=== PATIENT | female | born 1950 | race Caucasian/White ===

== ENCOUNTER 2019-09-09 20:09 | Inpatient (IN) | payer BC, MEDICARE ==
[~2019-09-09] VITALS: Ht 167.6 cm; Wt 76.2 kg
[~2019-09-09 20:09] MED LIST: LOSA25TA27 PO; SIMV20TA2 PO; VERA240C2 PO
--- NOTE | 2019-09-09 20:38 | NUR ---
PATIENT CAME TO ER BED 2 C/O RIGHT HIP PAIN SINCE EARLIER TODAY. PATIENT STATES THAT SHE WAS WALKING WITH HER DAUGHTER WHEN SHE HAD LOST BALANCED AND "SPRAINED HER ANKLE". HX OF RIGHT SIDE MASTECTOMY. RIGHT HIP PAIN, PEDAL PULSE STRONG AND EQUAL BILATERALLY. RIGHT LEG EXTERNAL ROTATION. AAOX4. NO SOB. BREATHING EVENLY AND UNLABORED ON ROOM AIR. CONNECTED TO MONITOR.
--- NOTE | 2019-09-09 20:43 | NUR ---
XRAY AT BEDSIDE.
--- NOTE | 2019-09-09 21:02 | NUR ---
ER SPOKE TO DR. PICKARD REGARDING PT ADMISSION.
[2019-09-09 21:15] LABS: BASOPHILS % (AUTO) 0.5 % (0.0-2.0); EOSINOPHILS % (AUTO) 0.5 % (0.0-6.0); HEMATOCRIT 40 % (33-45); HEMOGLOBIN 13.2 g/dL (11.5-14.8); LYMPHOCYTES # (AUTO) 0.6 /CMM (0.8-4.8); LYMPHOCYTES % (AUTO) 7.6 % (20.0-44.0); MEAN CORPUSCULAR HGB CONC 33 g/dl (31.0-36.0); MEAN CORPUSCULAR VOLUME 91 fL (82-100); MONOCYTES # (AUTO) 0.4 /CMM (0.1-1.30); MONOCYTES % (AUTO) 4.3 % (2.0-12.0); NEUTROPHILS # (AUTO) 7.4 /CMM (1.8-8.9); NEUTROPHILS % (AUTO) 87.1 % (43.0-81.0); PLATELET COUNT (AUTO) 194 /CMM (150-450); WHITE BLOOD COUNT (AUTO) 8.5 K/uL (4.3-11.0)
[2019-09-09 21:24] LABS: CALCIUM, SERUM 8.6 mg/dL (8.5-10.1); CREATININE 0.9 mg/dL (0.6-1.3)
[2019-09-09 21:35] LABS: ALBUMIN 3.5 g/dL (3.4-5.0); BILIRUBIN,TOTAL 0.2 mg/dL (0.2-1.0)
--- NOTE | 2019-09-09 21:35 | NUR ---
URINE COLLECTED AND SENT TO LAB.
--- NOTE | 2019-09-09 21:37 | NUR ---
REPORT CALLED TO M/S NISHI COSBY. PENDING HOSPITAL ADMISSION.
[2019-09-09 21:40] LABS: APPEARANCE,URINE Clear (CLEAR); BILIRUBIN,URINE Negative (NEGATIVE); BLOOD, URINE Negative Ery/uL (NEGATIVE); COLOR,URINE Yellow (YELLOW); KETONES,URINE Negative (NEGATIVE); LEUKOCYTE ESTERASE ,URINE Negative (NEGATIVE); NITRITE, URINE Negative (NEGATIVE); PH,URINE 7.5 (5.0-8.0); PROTEIN,URINE Negative (NEGATIVE); UGLUCOSE Negative (NEGATIVE); UROBILINOGEN,URINE 0.2 EU/dL (0.2)
--- NOTE | 2019-09-09 21:42 | NUR ---
ER MD SPOKE TO PIPE CHAPMAN REGARDING PT ADMISSION.
[2019-09-09] MEDS ORDERED: IV D5/0.45 NACL 1,000 ML IV PRN (21:57)
[2019-09-09] MEDS ORDERED: ONDANSETRON HCL/PF 4 MG/2 ML VIAL IV PRN (22:00)
[2019-09-09] MEDS ORDERED: LORAZEPAM INJ 2 MG/ML VIAL IV PRN (22:00)
[2019-09-09] MEDS ORDERED: Z GUARD REMEDY 2 OZ OINT TP PRN (22:00)
[2019-09-09] MEDS ORDERED: MORPHINE SULFATE INJ 4 MG/ML DISP.SYRIN IV PRN (22:00)
[2019-09-09] MEDS ORDERED: hydrALAZINE HCL IV 20 MG VIAL IV PRN (22:00)
[2019-09-09] MEDS ORDERED: ONDANSETRON HCL/PF 4 MG/2 ML VIAL IVP PRN (22:00)
--- NOTE | 2019-09-09 22:55 | NUR ---
MS RN ADMITTING NOTES RECEIVED PT FROM ER VIA CECIL IN STABLE CONDITION. PT A/O X3 AND ABLE TO MAKE NEEDS KNOWN. RESPIRATIONS EVEN AND UNLABORED WITH NO S/S OF ACUTE DISTRESS OR SOB NOTED. PT NOTED WITH ISELAAND #20G PATENT AND INTACT AND SL. SAFETY MEASURES IN PLACE WITH BED IN LOWEST LOCKED POSITION WITH SIDE RAILS UP X2. ORIENTED PT TO STAFF AND ROOM. CALL LIGHT WITHIN REACH. WILL CONTINUE TO MONITOR.
[2019-09-09 23:00] VITALS: BP 160/90
[2019-09-09] MEDS: MORPHINE SULFATE INJ 2 MG/ML DISP.SYRIN IV PRN (23:58)
[2019-09-10 06:30] LABS: BASOPHILS % (AUTO) 0.5 % (0.0-2.0); EOSINOPHILS % (AUTO) 0.9 % (0.0-6.0); HEMATOCRIT 41 % (33-45); HEMOGLOBIN 13.2 g/dL (11.5-14.8); LYMPHOCYTES # (AUTO) 0.7 /CMM (0.8-4.8); LYMPHOCYTES % (AUTO) 9.6 % (20.0-44.0); MEAN CORPUSCULAR HGB CONC 33 g/dl (31.0-36.0); MEAN CORPUSCULAR VOLUME 92 fL (82-100); MONOCYTES # (AUTO) 0.3 /CMM (0.1-1.30); MONOCYTES % (AUTO) 4.9 % (2.0-12.0); NEUTROPHILS # (AUTO) 5.9 /CMM (1.8-8.9); NEUTROPHILS % (AUTO) 84.1 % (43.0-81.0); PLATELET COUNT (AUTO) 183 /CMM (150-450); RED BLOOD CELL COUNT(AUTO) 4.42 MIL/uL (4.0-5.2); WHITE BLOOD COUNT (AUTO) 7.1 K/uL (4.3-11.0)
[2019-09-10 06:51] LABS: ALBUMIN 3.2 g/dL (3.4-5.0); BILIRUBIN,TOTAL 0.4 mg/dL (0.2-1.0); CALCIUM, SERUM 8.7 mg/dL (8.5-10.1); CREATININE 0.7 mg/dL (0.6-1.3); PHOSPHORUS 3.6 mg/dL (2.5-4.9); POTASSIUM 4.1 mmol/L (3.5-5.1); THYROID STIMULATING HORMONE 2.705 uIU/mL (0.358-3.74); TOTAL PROTEIN, SERUM 6.6 g/dL (6.4-8.2)
--- NOTE | 2019-09-10 07:24 | NUR ---
MS RN ADMITTING NOTES PT IN BED AWAKE AND ABLE TO MAKE NEEDS KNOWN. PT A/O X3. RESPIRATIONS EVEN AND UNLABORED WITH NO S/S OF ACUTE DISTRESS OR SOB NOTED THROUGHOUT SHIFT. PT NOTED WITH BRANDEE #20G PATENT AND INTACT INFUSING D5 1/2 NS @75CC/HR. SAFETY MEASURES IN PLACE WITH BED IN LOWEST LOCKED POSITION WITH SIDE RAILS UP X2. CALL LIGHT WITHIN REACH. WILL ENDORSE TO ONCOMING NURSE FOR MAREK. Addendum: 09/10/19 at 0726 by NEYMAR DAVENPORT RN CLOSING NOTES
--- NOTE | 2019-09-10 07:50 | NUR ---
RN NOTES-- PT WAS TAKEN DOWN TO OR IN MEDICALLY STABLE CONDITION.
[2019-09-10 08:00] VITALS: BP_SYST 144; BP_SYST 94; BP_DIAS 52; BP_DIAS 73
[2019-09-10] MEDS ORDERED: FENTANYL PF 100MCG/2ML AMPUL ONE ×2 (08:09→10:15)
--- NOTE | 2019-09-10 08:34 | NUR ---
WOUND CARE CONSULT: PT OFF UNIT AT THIS TIME IN SURGERY. WILL SEE PT PT CONDITION PERMITS. DISCUSSED SKIN PROTECTION WITH NURSING STAFF.
[2019-09-10] MEDS ORDERED: VERAPAMIL HCL 120 MG TABLET PO SCH (09:00)
[2019-09-10] MEDS ORDERED: LOSARTAN POTASSIUM 25 MG TABLET PO SCH (09:00)
[2019-09-10] MEDS: TRANEXAMIC ACID 1,000 MG in IV NS 0.9% 100 ML IV SCH ×2 (09:30→12:14)
[2019-09-10] MEDS ORDERED: HEMOSTATIC MATRIX 8 ML 1 EACH PAD MC ONE (09:34)
[2019-09-10] MEDS ORDERED: VANCOMYCIN 1 GM VIAL ONE (10:02)
--- NOTE | 2019-09-10 11:15 | NUR ---
RN NOTES-- PT CAME BACK FROM OR IN STABLE CONDITION. NOTED WITH JODI TO KEEP IN PLACE. PER OR NURSE, PT WILL BE TRANSFERRING FOR SURGERY. AWAITING DR. PICKARD TO SPEAK WITH PT, PER PT REQUEST.
--- NOTE | 2019-09-10 11:57 | NUR ---
RN NOTES-- MORNING MEDICATIONS NOT GIVEN D/T PT BEING IN OR.
[2019-09-10 12:05] LABS: HEMOGLOBIN 13.1 g/dL (11.5-14.8)
--- NOTE | 2019-09-10 12:14 | NUR ---
RN NOTES-- TRANEXAMIC ACID WAS ORDERED IN OR.
[2019-09-10] MEDS ORDERED: IV LR 1000 ML 1,000 ML IV PRN (12:30)
[2019-09-10] MEDS: HYDROCODONE/APAP 5/325MG 1 EACH TABLET PO PRN ×2 (12:36→18:00)
[2019-09-10] MEDS ORDERED: VERAPAMIL SR 120 MG TABLET.SA PO SCH (14:31)
[2019-09-10] MEDS: MORPHINE SULFATE INJ 2 MG/ML DISP.SYRIN IV PRN (15:28)
[2019-09-10 16:00] VITALS: BP 133/67
--- NOTE | 2019-09-10 16:17 | NUR ---
Social service consult requested by ADRI Avilez for continuity of care. Per MD notes and chart review, pt is a 76-year-old female with past medical history of essential hypertension, dyslipidemia, arthritis, left knee arthroplasty, breast CA with right mastectomy in January 2019, presented to the emergency department for evaluation of right hip pain with external rotation status post ground-level fall while walking outside. Patient states, she was taking a walk and then suddenly lost her balance and fell on her right side. Pt has a right hip fracture. SALON DESIGNER consulted with case consultant Yajaira who informed SW, pt is being transferred to [facility] today. No other social service needs are requested at this time.
--- NOTE | 2019-09-10 16:45 | NUR ---
RN NOTES-- CALLED PHARMACY X2 RE: VERAPAMIL AND STATED WILL SEND MEDICATION. MEDICATION DELAY. PT STATED "ITS OKAY, I DONT NEED TO TAKE IT." VSS.
[2019-09-10] MEDS ORDERED: CEFAZOLIN 2 GM in IV D5W 100 ML IV SCH (17:00)
--- NOTE | 2019-09-10 18:28 | NUR ---
RN NOTES-- RECEIVED A CALL FROM NAE FROM [facility] STATING THEY WANT US TO TRANSFER PT LAQUITA. PT SIGNED TRANSFER REQUEST FORM. FORM GIVEN TO CASE MANAGEMENT.
--- NOTE | 2019-09-10 18:29 | NUR ---
END OF SHIFT SUMMARY NOTES PT IS A/OX4, AFEBRILE. NON-MONITORED, VSS. TOLERATING RA. RESPIRATIONS ARE EVEN AND UNLABORED, NOT IN ANY ACUTE DISTRESS NOTED. PAIN TO RIGHT HIP MANAGED BY MORPHINE AND NORCO. NO C/O CHEST PAIN. LEFT HAND IV INTACT, NO INFITLRATION NOTED. DRESSING KEPT CLEAN AND DRY. ON IV ABX. TOLERATING PO W/ NO N/V. SKIN CDI, NOTED WITH MULTIPLE DISCOLORATION. ALL NEEDS MET AND RENDERED. SAFETY MEASURES ARE IN PLACE. CALL LIGHT IS LEFT WITHIN REACH. WILL MONITOR AND CONTINUE POC.
--- NOTE | 2019-09-10 19:17 | NUR ---
ENDORSED TO NISHI BRAGA FOR MAREK.
--- NOTE | 2019-09-10 19:18 | NUR ---
RN NOTES: RECEIVED PATIENT LYING ON BED A/OX4, IV CANNULA LH G#20 WITH IVF OF LR AT 75ML/HR ONGOING, ZAPATA CATH ON SITE DRAINING INTO YELLOWISH COLORED URINE, SHE HAD RIGHT HIP DISPLACED SUBCAPITAL FRACTURE OF FEMORAL NECK, S/P FALL FROM HOME, SHE IS SCHEDULED FOR TRANSFER AT 1999 IN [facility] FOR RIGHT TOTAL HIP REPLACEMENT UNDER DR. MAO, PER ENDORSEMENT ACCEPTING DOCTOR IS DR. KAPLAN, AND SHE WILL BE DIRECT ADMIT TO [facility] UNIT #4, DISCHARGE PAPERS ARE ALL PRINTED AND PREPARED,INCLUDING THE MED RECON OF THE PATIENT.PER ENDORSEMENT WE NEED TO COMPLETE TRANSFER PAPER FORM, GET PATIENT SIGNATURE, CHECK BELONGINGS AND GET SIGNATURE, AND LET PATIENT SIGN ALL TRANSFER PAPERS, AND TO CONTACT [facility] FOR ENDORSEMENT.
--- NOTE | 2019-09-10 19:25 | NUR ---
RN NOTES: ALL PAPER WORKS CHECK AND FORM COMPLETED, HER CD OF X-RAY NOW AVAILABLE IN HER TRANSFER POCKET,BELONGINGS CHECK BY PRESIDENT ERGONOMIC CONSULTING AND PATIENT SIGNED, TRANSFER FORM EXPLAINED TO HER AND SHE SIGNED AFTER THAT, RN EXPLAINED TO HER IN THE PRESENCE OF ANOTHER RN-NEYMAR IF WE CAN TAKE HER PICTURES AGAIN IN THE RIGHT ELBOW AND RIGHT KNEE, SHE SAID "NOTHING WILL CHANGE IN THAT FOR LESS THAN 24 HOURS, I DONT THINK YOU NEED TO TAKE IT AGAIN', RESPECT PATIENT REFUSAL FOR BODY ASSESSMENT AND TAKING OF PICTURES AGAIN. -ALL HER BELONGINGS WAS PLACED IN 2 BAGS. -HER WAS NOTIFIED THAT SHE WILL BE LEAVING BY 1999.
[2019-09-10 19:30] VITALS: BP 106/62
--- NOTE | 2019-09-10 19:40 | NUR ---
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
--- NOTE | 2019-09-10 20:00 | NUR ---
RN NOTES: -AM WE[facility] EMT ARRIVED, ENDORSEMENT GIVEN TO CHAS/EMT, GIVEN INSTRUCTION PATIENT FOR DIRECT ADMIT IN [facility]THO UNIT#4, ENDORSEMENT GIVEN TO JOSE.REMOVE IVF, HER ZAPATA CATH IS INTACT.TRANSFER WITH 3 PERSON ASSIST TO KEEP BLE IMMOBILIZED, SHE IS NON WEIGHT BEARING ON BLE. IV FLUIDS DISCONNECTED. RN ASKED HER IF WE NEED TO CALL HER TO NOTIFY THE TRANSFER SHE SAID "NO NEED I JUST SPOKE TO HIM AWHILE AGO".. TRANSFERRED AT 2005PM.
[2019-09-11] MEDS ORDERED: ENOXAPARIN SODIUM 40 MG/0.4 ML DISP.SYRIN SQ SCH (09:00)
== END 2019-09-10 20:20 | disposition short-term general hospital (02) | DRG 470 ==
LOC: ER 20:09 → MED 21:31
PROVIDERS: ADMIT Nurse Practitioner Acute Care; ATTEND Internal Medicine
PROC: 0SR90JZ Replacement of Right Hip Joint with Synthetic Substitute, Open Approach (ICD-10-PCS; principal; 2019-09-10)
DX: M80.051A Age-related osteoporosis with current pathological fracture, right femur, initial encounter for fracture (principal); E87.1 Hypo-osmolality and hyponatremia; D68.69 Other thrombophilia; E78.5 Hyperlipidemia, unspecified; E86.1 Hypovolemia; I10 Essential (primary) hypertension; F41.9 Anxiety disorder, unspecified; F32.9 Major depressive disorder, single episode, unspecified; W01.0XXA Fall on same level from slipping, tripping and stumbling without subsequent striking against object, initial encounter; Y93.9 Activity, unspecified; Y92.009 Unspecified place in unspecified non-institutional (private) residence as the place of occurrence of the external cause; Z90.11 Acquired absence of right breast and nipple; Z96.652 Presence of left artificial knee joint; Z85.3 Personal history of malignant neoplasm of breast; M19.90 Unspecified osteoarthritis, unspecified site
CPT/HCPCS: 36415; 71045-TC; 72170-TC; 73502; 80053-TC; 80061-TC; 81000-TC; 83735-TC; 84100-TC; 84443-TC; 84484-TC; 85025-TC; 85027-TC; 85730-TC; 86850-TC; 87081-TC; 88305-TC; 88311-TC; A4217; A6209; C1776; G0378; J0690; J1100; J1885; J2270; J2405; J2704; J3010; J3370; J3490; J7030; J7060

== ENCOUNTER 2025-03-23 16:42 | Emergency (ER) | payer MEDICARE, BC ==
[~2025-03-23] VITALS: Ht 167.6 cm; Wt 77.1 kg
[2025-03-23 17:29] VITALS: BP 122/86; TEMP 98.3; O2SAT 95
== END 2025-03-23 18:06 | disposition home or self-care (01) ==
LOC: ER 16:49
DX: S01.511A Laceration without foreign body of lip, initial encounter (principal); E78.00 Pure hypercholesterolemia, unspecified; I10 Essential (primary) hypertension; Z88.2 Allergy status to sulfonamides; Z96.659 Presence of unspecified artificial knee joint; Z79.899 Other long term (current) drug therapy; X58.XXXA Exposure to other specified factors, initial encounter; Y93.89 Activity, other specified; Y92.89 Other specified places as the place of occurrence of the external cause; Y99.8 Other external cause status